=== PATIENT | male | born 1975 | race Caucasian/White ===

== ENCOUNTER 2024-04-29 14:13 | Outpatient (CLI) | payer MEDICAID ==
[~2024-04-29 14:13] MED LIST: NAPR-56 PO
== END 2024-04-29 23:59 | disposition home or self-care (01) ==
LOC: RAD 14:13
PROVIDERS: ATTEND Physician Assistant
DX: J43.9 Emphysema, unspecified (principal); Z72.0 Tobacco use; I31.39 Other pericardial effusion (noninflammatory)
CPT/HCPCS: 71250